=== PATIENT | male | born 1985 | race Caucasian/White ===

== ENCOUNTER 2017-12-18 13:16 | Emergency (ER) | payer OTHER ==
[~2017-12-18] VITALS: Ht 177.8 cm; Wt 105.6 kg
[~2017-12-18 13:16] MED LIST: AMBIEN; AMBIEN PO; AMBIEN10 MG PO; AMLODIPINE BESYL5 MG PO; COLCHICINE0.6 M1 PO; DOXYCYCLINE HY100 MG PO; FLEXERIL; FLEXERIL10 MG PO; KADIAN30 MG PO; KEFLEX500 MG PO; LISINOPRIL-HCT1 EAC3 PO; LYRICA; LYRICA150 MG PO; LYRICA200 MG PO; LYRICA225 MG PO; MOTRIN800 MG PO; MUSCLE RELAXER; NAPROSYN250 MG PO; NAPROSYN500 MG PO; OPANA; OPANA ER40 MG PO; OPANA IR10 MG PO; OXYCODONE; OXYCODONE30 MG PO; PROMETHAZINE HC25 M1 PO; ROXICODONE5 MG PO; SOMA350 MG PO; ZOFRAN ODT4 MG PO
[2017-12-18 13:19] VITALS: BP 155/97
[2017-12-18 13:53] LABS: HEMATOCRIT 48.2 % (38.0-50.0); HEMOGLOBIN 16.2 G/DL (12.5-16.6); MCH 28.7 PG (29.0-34.0); MCHC 33.6 G/DL (30.0-36.0); MCV 85.5 FL (86-99); PLATELET COUNT 178 K/uL (156-360); RBC DIS.WIDTH-SD 46.5 % (39-53); RED BLOOD COUNT 5.64 M/uL (4.00-5.50); WHITE BLOOD COUNT 9.7 K/uL (4.1-10.2)
[2017-12-18 14:04] LABS: ALBUMIN 5.1 g/dL (3.2-4.8); CHLORIDE 103 mEq/L (99-109); POTASSIUM 3.8 mEq/L (3.7-5.4); SODIUM 140 mEq/L (136-147)
[2017-12-18 14:07] LABS: GLUCOSE 125 mg/dL (70-99); TOTAL PROTEIN 8.5 g/dL (6.4-8.3)
[2017-12-18 14:09] LABS: TOTAL BILIRUBIN 0.7 mg/dL (0.0-1.0)
[2017-12-18 14:10] LABS: ALKALINE PHOSPHATASE 116 IU/L (3-129); CREATININE 0.8 mg/dL (0.6-1.3); GFR ESTIMATE (CALCULATED) > 59 mL/min/ (58.99-99999)
[2017-12-18 14:11] LABS: UREA NITROGEN (BUN) 10 mg/dL (9-23)
[2017-12-18 14:12] LABS: AST (GOT) 41 IU/L (2-34)
[2017-12-18 14:13] LABS: ALT (GPT) 69 IU/L (3-49)
[2017-12-18 14:29] LABS: LIPASE 1 U/L (1.0-51.0)
[2017-12-18 16:24] LABS: APPEARANCE CLEAR ((CLEAR)); BILIRUBIN NEGATIVE; BLOOD NEGATIVE; COLOR YELLOW ((YELLOW)); GLUCOSE (STRIP) NEGATIVE; KETONES 80; LEUKOCYTES TRACE; NITRITE NEGATIVE; PROTEIN (STRIP) 30; SPECIFIC GRAVITY 1.014 (1.000-1.030); UROBILINOGEN 0.2 MG/DL (0.2-1.0)
[2017-12-18 16:40] LABS: BACTERIA NONE SEEN /HPF; EPITHELIAL CELLS RARE /HPF; MUCUS 4+ /LPF; UCUL ADDED? NO; WHITE BLOOD CELLS 0-5 /HPF (0-5)
== END 2017-12-18 17:10 | disposition home or self-care (01) ==
LOC: EME 13:16
DX: K80.20 Calculus of gallbladder without cholecystitis without obstruction (principal); K76.0 Fatty (change of) liver, not elsewhere classified; G89.29 Other chronic pain; I10 Essential (primary) hypertension; Z87.891 Personal history of nicotine dependence; Z87.442 Personal history of urinary calculi; Z88.2 Allergy status to sulfonamides
CPT/HCPCS: 74177; 80053; 81003; 83690; 85027; 99281; 99284; J2405; J2765; J7030; S0028

== ENCOUNTER → 2018-02-13 | Outpatient (CLI) | payer OTHER ==
[~2018-02-13] VITALS: Ht 177.8 cm; Wt 106.5 kg
[~2018-02-13] MED LIST changes: +ALLOPURINOL300 MG PO; -LYRICA200 MG PO; +METHADONE10 MG/1 M1 PO; +OMEPRAZOLE20 M2 PO; +ZANAFLEX2 M1 PO
== END | disposition home or self-care (01) ==
LOC: AMB 08:30
PROC: 0DB68ZX Excision of Stomach, Via Natural or Artificial Opening Endoscopic, Diagnostic (ICD-10-PCS; principal; 2018-02-13)
PROC: 0DB48ZX Excision of Esophagogastric Junction, Via Natural or Artificial Opening Endoscopic, Diagnostic (ICD-10-PCS; principal; 2018-02-13)
DX: K29.70 Gastritis, unspecified, without bleeding (principal); K20.9 Esophagitis, unspecified; I10 Essential (primary) hypertension; F11.20 Opioid dependence, uncomplicated; Z87.891 Personal history of nicotine dependence; F41.1 Generalized anxiety disorder; E66.9 Obesity, unspecified; Z68.33 Body mass index [BMI] 33.0-33.9, adult; Z88.2 Allergy status to sulfonamides; Z88.5 Allergy status to narcotic agent; Z88.8 Allergy status to other drugs, medicaments and biological substances
CPT/HCPCS: 88305; 88342 TC; 93005; J2405